=== PATIENT | female | born 1970 | race Asian ===

== ENCOUNTER 2020-10-17 03:44 | Emergency (ER) | payer MEDICAID ==
[~2020-10-17] VITALS: Ht 157.5 cm; Wt 68.0 kg
--- NOTE | 2020-10-17 04:00 | NUR ---
ED Nurse Note: Patient walked into the ED from home with c/o right ear pain. Patient stated it started since she was a child and was having recurrent infections since childhood and state that the pain would affect other body parts. Patient stated bleeding on the right ear but none was seen upon assessment, no swelling, no drainage noted. Pt denies injury/trauma, fever/chills, n/v/d.
--- NOTE | 2020-10-17 04:01 | NUR ---
ED Nurse Note: ERMD at bedside
[2020-10-17] MEDS ORDERED: AUGMENTIN 875-1 EAC1 ORAL (04:05)
--- NOTE | 2020-10-17 04:08 | Emergency Room Report ---
History of Present Illness General Chief Complaint: Earache Source: Patient Present Illness HPI Disclaimer: Please note that this report is being documented using [employer] technology. This can lead to erroneous entry secondary to incorrect interpretation by the dictating instrument. HPI: 50-year-old female history of recurrent ear infections presents for evaluation of ear pain. Symptoms present several days. She reports a long history of recurrent ear infections but no recent antibiotics. Reports pain and itching in her right ear. She noted some scant bleeding from the ear today. Denies trauma. Denies fever or chills. Reports fatigue and diffuse myalgias which are common for her when she gets ear infections. Follows with ENT. Denies sore throat, nasal congestion, cough, shortness of breath, fever or other symptoms at this time. PMH: Reviewed PSH: Reviewed Allergies: Denied Social Hx: Reviewed Allergies: Coded Allergies: No Known Allergies (Unverified , 10/17/20) COVID-19 Screening Contact w/high risk pt: No Experienced COVID-19 symptoms?: No COVID-19 Testing performed ELECTRICIAN FRONT: No Patient History Last Menstrual Period: n/a Nursing Documentation-PMH Past Medical History: No Stated History Review of Systems All Other Systems: negative except mentioned in HPI Physical Exam Vital Signs Date Time Temp Pulse Resp B/P (MAP) Pulse Ox O2 Delivery O2 Flow Rate FiO2 10/17/20 03:52 99.0 83 18 166/67 (100) 98 Room Air General: Awake and alert, no acute distress HEENT: NC/AT. EOMI. left tympanic membrane is pearly nguyen, nonbulging, clear landmarks, no effusion. Right tympanic membrane is edematous and erythematous and bulging. No obvious rupture. No signs of bleeding. No tenderness over the mastoids. Hearing grossly intact bilaterally Resp: Normal work of breathing Skin: Intact. No abrasions, laceration or rash over the exposed skin MSK: Normal tone and bulk. Moving all extremities. No obvious deformity. Neuro: Awake and alert. Mentating appropriately Medical Decision Making Diagnostic Impression: Primary Impression: Otitis media ER Course Is a 50-year-old female presenting for evaluation of right-sided earache. Physical consistent with acute otitis media. Patient has had good effect with Augmentin in the past. Will start Augmentin and follow-up with her ENT. No signs of mastoiditis or significant systemic infection. Will follow up with her PMD and ENT. Instructed to return with new or worsening symptoms. Last Vital Signs Date Time Temp Pulse Resp B/P (MAP) Pulse Ox O2 Delivery O2 Flow Rate FiO2 10/17/20 03:52 99.0 83 18 166/67 (100) 98 Room Air Disposition: HOME, SELF-CARE Condition: Stable Scripts Amoxicillin/Potassium Clav 875-125* (AUGMENTIN 875-125 TABLET*) 1 Each Tablet 1 TAB ORAL TWICE A DAY for 7 Days, #14 TAB Prov: Nazario Lee MD 10/17/20 Referrals: [facility] Patient Instructions: Otitis Media, Adult Additional Instructions: Follow-up with your planer offbearer as soon as possible. Take th e antibiotics as prescribed. Please follow-up with your primary care doctor in the next 1 to 3 days to discuss this emergency department visit and for reevaluation. If you have any new or worsening symptoms please return to the emergency department for reevaluation. Please note that this report is being documented using [employer] technology. This can lead to erroneous entry secondary to incorrect interpretation by the dictating instrument. Nazario Lee MD Oct 17, 2020 04:08
[2020-10-17 04:09] VITALS: BP 124/74
--- NOTE | 2020-10-17 04:09 | NUR ---
ER DISCHARGE NOTE: Patient is cleared to be discharged per ERMD, pt is aox4, on room air, with stable vital signs. pt was given dc and prescription instructions, pt was able to verbalize understanding, pt id band removed. pt is able to ambulate with steady gait. pt took all belongings.
== END 2020-10-17 04:12 | disposition home or self-care (01) ==
LOC: EMR 04:05
DX: H66.91 Otitis media, unspecified, right ear (principal)
CPT/HCPCS: 99282